=== PATIENT | female | born 1990 | race Hispanic/Latino ===

== ENCOUNTER 2025-09-11 18:01 | Emergency (ER) | payer SELFPAY ==
[2025-09-11 18:04] VITALS: BP 126/76
--- NOTE | 2025-09-11 19:13 | ED.GENMED ---
History of Present Illness
General
Chief Complaint: Musculo-Skeletal Complaint
Time Seen by Provider: 09/11/25 19:13
History of Present Illness
History of Present Illness:
FOCUSED PAST MEDICAL HISTORY
- Migraines, has had tubal ligation, frequent headaches
REVIEW OF OLD RECORDS
- The patient had a CAT scan of the abdomen pelvis in 2022 that showed small pleural effusions
Note:
CHIEF COMPLAINT(S)
Pain in right leg radiating from buttock to foot.
HISTORY OF PRESENT ILLNESS
The patient is a 34-year-old female who presents with pain primarily in the right leg, extending from the right buttock down to the right foot. The pain began the previous morning. The patient describes the pain as a shooting sensation down the leg,
particularly when the leg is lifted or the ankle is moved. She denies any fever.
SOCIAL HISTORY
The patient does not drive, and it was noted that she has a ride arranged for transportation home.
PHYSICAL EXAM
General: Alert, appears somewhat uncomfortable
Skin: Warm, dry.
Head: Normocephalic, atraumatic.
Neck: Supple, trachea midline.
Eye Ears, nose, mouth and throat: Oral mucosa moist.
Cardiovascular: Normal peripheral perfusion, no edema. Strong right DP pulse, good perfusion to both feet
Respiratory: Respirations are non-labored.
Gastrointestinal: Abdomen nondistended. No abdominal tenderness
Back: Normal range of motion, normal alignment. No significant back tenderness, positive straight leg raise on the right
Musculoskeletal: Normal range of motion, normal strength. Identified a strong pulse in the right foot.
Neurological: Alert and oriented to person, place, time, and situation, no focal neurological deficit observed. There is fairly good strength into L5 and S1 distribution to the right lower extremity
Psychiatric: Cooperative, appropriate mood & affect.
PROBLEM LIST
Acute Problems
1. Sciatica
PLAN
1. Administered a steroid medication and pain relief injection to manage symptoms.
2. Prescribed a narcotic pain medication for a few days for severe pain, to be picked up from the [facility] pharmacy located at [place] and [facility].
DIFFERENTIAL DIAGNOSIS
The Differential Diagnosis includes, in no particular order and is not limited to:
1. Sciatica
2. Lumbar Radiculopathy
3. Herniated Disc
4. Spinal Stenosis
5. Peripheral Neuropathy
6. Venous Insufficiency
7. Muscular Strain
8. Bursitis
9. Avascular Necrosis
10. Femoral Nerve Entrapment
UPDATE
-SUMMARY OF ENCOUNTER
The patient presented with symptoms consistent with sciatica, including a shooting pain radiating from the right leg to the foot. Upon evaluation, it was determined that narcotic and steroid medication were appropriate treatments to manage the pain
and inflammation. A pain relief injection was administered during the visit for immediate relief. A prescription was sent to the patients pharmacy for further management of severe pain at home.
ASSESSMENT
The patients presentation is consistent with sciatica, characterized by shooting leg pain originating from the buttock.
EMERGENCY TREATMENTS ADMINISTERED
A steroid injection and a pain relief shot were administered to alleviate symptoms.
PATIENT EDUCATION AND COUNSELING
The patient was provided with contact information for the [facility] for further follow-up care. Details regarding the condition, treatment options, and management plan were discussed using a language line truck and transport mechanic to ensure
comprehensive understanding.
FOLLOW-UP INSTRUCTIONS
The patient was advised to arrange a follow-up appointment with the [facility] as discussed.
MEDICATION RECONCILIATION
The patient was started on narcotic and steroid medications. A prescription was sent electronically to the patients designated pharmacy for continued pain management.
MEDICAL DECISION MAKING
-Complexity of Data Reviewed:
Chronic conditions affecting care: Sciatica.
Differential Diagnosis includes: Sciatica, Lumbar Radiculopathy, Herniated Disc, Spinal Stenosis, Peripheral Neuropathy, Venous Insufficiency, Muscular Strain, Bursitis, Avascular Necrosis, Femoral Nerve Entrapment.
-Data:
Category 1
My independent selection and interpretation of imaging was consistent with the clinical signs indicating sciatica, justifying the treatments provided. Use of language line truck and transport mechanic enabled accurate history taking and examination.
Category 3
Management of the patients care was discussed via sign language interpreter service to ensure the patient understood the administered treatments and follow-up requirements.
-Risk:
Prescription medication was prescribed for managing pain, emphasizing the need for monitoring in case of any adverse effects due to narcotic use. Consideration of Admission/Observation: Escalation of care, including admission/observation, was
considered. However, given the patients improved symptoms post-treatment, she was deemed safe for discharge with proper outpatient management and follow-up. Decision took into account patients reliable transportation home and capability to adhere to
follow-up instructions.
DIAGNOSIS
M54.31 Sciatica, right side
Past History
Past History
ED Past Medical History: None
ED Past Surgical History: Gynecological
Social History
Tobacco: Non-smoker
Alcohol: None
Drug: None
Phy Exam
Physical Exam
Physical Exam:
See HPI
Course
Orders/Labs/Results
Orders:
Orders
09/11/25 19:56
Ketorolac [Toradol] 30 mg IM NOW STA
Oxycodone/Acetaminophen [Percocet 5/325] 1 tablet PO NOW STA
Prednisone [Deltasone] 50 mg PO NOW STA
Vital Signs
Initial and Last Documented VS:
Initial Vital Signs
Temp Pulse Resp BP Pulse Ox
36.8 C 69 18 126/76 97
09/11/25 18:04 09/11/25 18:04 09/11/25 18:04 09/11/25 18:04 09/11/25 18:04
Last Documented Vital Signs
Temp Pulse Resp BP Pulse Ox
36.8 C 68 18 118/81 100
09/11/25 18:04 09/11/25 20:59 09/11/25 20:59 09/11/25 20:59 09/11/25 20:59
*Pulse Oximetry
SaO2: 97
Oxygen Mode of Delivery: Room air
Patient hypoxic: no
*Critical Care Note
Total Time (30-74mins, 75-104mins- exclusive of procedures): Not Applicable
ED Attending Note
-
Portions of this chart may have been created with voice recognition software.� Occasional wrong word or��sound alike� substitutions may have occurred due to the inherent limitations of voice recognition software.
Discharge Plan
Departure
Patient Disposition: Home (Routine Discharge)
Date of Disposition: 09/11/25
Time of Disposition: 20:05
Patient with high blood pressure during this ER visit?: Yes
Discharge Problem:
Sciatica
Instructions: Low back pain - ED (DC), Sciatica - ED (DC)
Prescriptions:
New
hydrocodone-acetaminophen 5-325 mg tablet
1 tab PO Q8H PRN (Reason: Pain) Qty: 14 0RF
prednisone 50 mg tablet
50 mg PO DAILY Qty: 4 0RF
No Action
cyclobenzaprine 10 mg tablet
10 mg PO Q8H PRN (Reason: muscle spasm) Qty: 10 0RF
amoxicillin-pot clavulanate 875-125 mg tablet
1 tab PO BID Qty: 20 0RF
hydrocodone-acetaminophen 5-300 mg tablet
1 tab PO Q4H PRN (Reason: pain) Qty: 10 0RF
Referrals:
[facility] [Outside]
UNKNOWN - PT DOES,NOT KNOW [Family Provider]
Activity Restrictions/Additional Instructions:
No conduzca esta noche, ya que le hemos administrado un narc�crystal. Envi� andria receta de narc�crystal y esteroides a la farmacia [facility] [address] y [address] Consulte con smith m�dico de jalenra. Regrese si empeora. Si rhett el narc�crystal, tome
Miralax para ayudar a prevenir el estre�imiento. Tambi�n te he facilitado la informaci�n de contacto de la [facility]; intenta llamarles para hacer un seguimiento.
Interventions
Interventions:
*Risk Screen - Suicide Last Done: 09/11/25 18:14
*General Assessment Last Done: 09/11/25 18:14
*Neglect/Abuse Screening Last Done: 09/11/25 18:14
*ED- Fall Risk Assessment Last Done: 09/11/25 19:20
*ED COVID-19 Vaccine History Last Done: 09/11/25 19:20
*ED Influenza Vaccine History Last Done: 09/11/25 19:20
*Nursing Disposition Last Done: 09/11/25 21:01
ED-Musculoskeletal Assessment Last Done: 09/11/25 19:22
Discharge Date and Time
Discharge Date/Time: 09/11/25 21:04
Print Language: GEORGIAN
[2025-09-11 20:05] VITALS: BP 118/81
[2025-09-11] MEDS: DELTASONE 50 MG PO (20:06)
[2025-09-11] MEDS: PERCOCET 5/325 1 TABLET PO (20:07)
[2025-09-11] MEDS: TORADOL 30 MG IM (20:08)
[2025-09-11 20:59] VITALS: BP 118/81
== END 2025-09-11 21:04 | disposition home or self-care (01) ==
LOC: EMR 18:01
PROVIDERS: EMERGENCY PHYSICIAN Emergency Medicine
DX: M54.31 Sciatica, right side (principal); G43.909 Migraine, unspecified, not intractable, without status migrainosus
CPT/HCPCS: 99284; 96372